=== PATIENT | female | born 1980 | race African-American/Black ===

== ENCOUNTER 2018-12-09 13:48 | Inpatient (IN) | payer OTHER ==
[2018-12-09 14:09] VITALS: BMI 24.8
--- NOTE | 2018-12-09 15:11 | HP ---
CIWA Score Nausea/Vomitin-No Nausea/No Vomiting Muscle Tremors: 2 Anxiety: 3 Agitation: 3 Paroxysmal Sweats: 2 Orientation: 0-Oriented Tacttile Disturbances: 2-Mild Itch/Numbness/Burn Auditory Disturbances: 0-None Visual Disturbances: 0-None Headache: 0-None Present CIWA-Ar Total Score: 12 - Admission Criteria OASAS Guidelines: Admission for Medically Managed Detox: Requires at least one of the followin. CIWA greater than 12 2. Seizures within the past 24 hours 3. Delirium tremens within the past 24 hours 4. Hallucinations within the past 24 hours 5. Acute intervention needed for co occurring medical disorder 6. Acute intervention needed for co occurring psychiatric disorder 7. Severe withdrawal that cannot be handled at a lower level of care (continued vomiting, continued diarrhea, abnormal vital signs) requiring intravenous medication and/or fluids 8. Patient presents the following: CIWA greater than 12 Admission Criteria Met: Admission criteria met Admission ROS [facility] Chief Complaint: " detox" Allergies/Adverse Reactions: Allergies Allergy/AdvReac Type Severity Reaction Status Date / Time banana Allergy Severe Difficulty Verified 12/09/18 15:13 Breathing peach Allergy Severe Difficulty Verified 12/09/18 15:13 Breathing shrimp Allergy Severe Difficulty Verified 12/09/18 15:13 Breathing No Known Drug Allergies Allergy Verified 12/09/18 15:33 History of Present Illness: 38 yo female with hx of nicotine, alcohol, marijuana, cocaine dependence is here seeking detox, self referred. Patient reports the following medical conditions: asthma, bipolar, psychosis, ptsd, depression. Denies suicidal / homicidal ideation . Reports hx of suicide attempt in 2017 admitted to [facility]. Denies hx of seizures or black outs. Longest period of sobriety three years 2012 -2015. Exam Limitations: No Limitations - Ebola screening Have you been sick,other than usual withdrawal symptoms: No - Review of Systems Constitutional: Changes in sleep EENT: reports: Dental Problems (dental pain + caries) Respiratory: reports: No Symptoms reported Cardiac: reports: No Symptoms Reported GI: reports: Poor Appetite, Poor Fluid Intake : reports: No Symptoms Reported Musculoskeletal: reports: No Symptoms Reported Integumentary: reports: Sweating Neuro: reports: No Symptoms reported Endocrine: reports: Increased Thirst Hematology: reports: No Symptoms Reported Psychiatric: reports: Orientated x3, Anxious, Depressed Other Systems: Reviewed and Negative Patient History - Patient Medical History Hx Anemia: No Hx Asthma: Yes Hx Chronic Obstructive Pulmonary Disease (COPD): No Hx Cancer: No Hx Cardiac Disorders: No Hx Congestive Heart Failure: No Hx Hypertension: No Hx Hypercholesterolemia: No Hx Pacemaker: No HX Cerebrovascular Accident: No Hx Seizures: No Hx Dementia: No Hx Diabetes: No Hx Gastrointestinal Disorders: No Hx Liver Disease: No Hx Genitourinary Disorders: No Hx Sexually Transmitted Disorders: No Hx Renal Disease (ESRD): Yes (kidney stones ) Hx Thyroid Disease: No Hx Human Immunodeficiency Virus (HIV): No (last tested six months ago ) Hx Hepatitis C: No Hx Depression: Yes Hx Suicide Attempt: Yes (2016) Hx Bipolar Disorder: Yes Hx Schizophrenia: No - Patient Surgical History Past Surgical History: No - PPD History Previous Implant?: No Documented Results: Negative w/o proof PPD to be Administered?: Yes - Reproductive History Patient is a Female of Child Bearing Age (11 -55 yrs old): Yes Last Menstrual Period: 11/10/18 Patient : No - Smoking Cessation Smoking history: Current every day smoker Have you smoked in the past 12 months: Yes Aproximately how many cigarettes per day: 5 Hx Chewing Tobacco Use: No Initiated information on smoking cessation: Yes 'Breaking Loose' booklet given: 12/09/18 - Substance & Tx. History Hx Alcohol Use: Yes Hx Substance Use: Yes Substance Use Type: Alcohol, Cocaine, Marijuana Hx Substance Use Treatment: Yes (last rehab at [facility] 2005) - Substances Abused alcohol Route: Oral Frequency: 3-6 times per week Amount used: 1 pint Age of first use: 20 Date of Last Use: 12/08/18 Cocaine Route: Inhalation Frequency: 3-6 times per week Amount used: 1 gram Age of first use: 32 Date of Last Use: 12/08/18 Marijuana/Hashish Route: Smoking Frequency: 1-2 times per week Amount used: 1 oz Age of first use: 20 Date of Last Use: 12/08/18 Family Disease History - Family Disease History Family Disease History: CA: Mother (maia dependence ), Other: Father (maia dependence ), Mother Admission Physical Exam BHS - Vital Signs Vital Signs: Vital Signs - 24 hr 12/09/18 14:07 Temperature 96.2 F L Pulse Rate 86 Respiratory 20 Rate Blood Pressure 117/64 - Physical General Appearance: Yes: Appropriately Dressed, Sweating, Anxious HEENTM: Yes: EOMI, Hearing grossly Normal, Normal ENT Inspection, Normocephalic , Normal Voice, CAROLE, Pharynx Normal, Tm's normal, Other (dry mucous memebranes , multiple caries) Respiratory: Yes: Chest Non-Tender, Lungs Clear, Normal Breath Sounds, No Respiratory Distress, No Accessory Muscle Use Neck: Yes: Within Normal Limits Breast: Yes: Breast Exam Deferred Cardiology: Yes: Regular Rhythm, Regular Rate Abdominal: Yes: Within Normal Limits Genitourinary: Yes: Within Normal Limits Back: Yes: Normal Inspection Musculoskeletal: Yes: full range of Motion, Gait Steady, Pelvis Stable Extremities: Yes: Normal Capillary Refill, Normal Inspection, Normal Range of Motion Neurological: Yes: lab[address] II-XII NML intact, Fully Oriented, Alert, Motor Strength 5/5 Integumentary: Yes: Normal Color, Warm, Diaphoresis Lymphatic: Yes: Within Normal Limits - Diagnostic (1) Alcohol dependence with withdrawal Current Visit: Yes Status: Acute Qualifiers: Complication of substance-induced condition: uncomplicated Qualified Code(s ): F10.230 - Alcohol dependence with withdrawal, uncomplicated (2) At risk for dehydration due to poor fluid intake Current Visit: Yes Status: Acute (3) Cocaine dependence Current Visit: Yes Status: Acute Qualifiers: Substance use status: uncomplicated Qualified Code(s): F14.20 - Cocaine dependence, uncomplicated (4) Cannabis dependence Current Visit: Yes Status: Acute (5) Psychiatric disorder Current Visit: Yes Status: Acute (6) Asthma Current Visit: Yes Status: Chronic Qualifiers: Asthma severity: mild Asthma persistence: unspecified Asthma complication type: uncomplicated Qualified Code(s): J45.909 - Unspecified asthma, uncomplicated Cleared for Admission S - Detox or Rehab [facility] Level of Care: Medically Managed Detox Regimen/Protocol: Librium [facility] Breath Alcohol Content Breath Alcohol Content: 0 Urine Pregancy Test - Result Urine Test Results: Negative- NO Line Present Urine Drug Screen - Results Drug Screen Negative: No Urine Drug Screen Results: THC-Marijuana, MAIA-Cocaine Inpatient Rehab Admission - Rehab Decision to Admit Inpatient rehab admission?: No
[2018-12-09] MEDS ORDERED: LOPERAMIDE HCL 2 MG CAPSULE PO PRN (15:20)
[2018-12-09] MEDS ORDERED: MENTHOL/PHENOL 1 EACH UD MM PRN (15:20)
[2018-12-09] MEDS ORDERED: MAG HYDROX/AL HYDROX/SIMETH 30 ML UNIT-DOSE CUP PO PRN (15:20)
[2018-12-09] MEDS ORDERED: ACETAMINOPHEN 325 MG TABLET (FP) PO PRN (15:20)
[2018-12-09] MEDS ORDERED: hydrOXYzine PAMOATE 50 MG CAPSULE (FP) PO PRN (15:20)
[2018-12-09] MEDS ORDERED: MAGNESIUM CITRATE 300 ML BOTTLE PO PRN (15:20)
[2018-12-09] MEDS ORDERED: MAGNESIUM HYDROX 2400MG/30ML ORAL SUSPENSION 30 ML CUP PO PRN (15:20)
[2018-12-09] MEDS ORDERED: NICOTINE POLACRILEX 2 MG GUM BC PRN (15:20)
[2018-12-09] MEDS ORDERED: guaiFENesin/D-METHORPHAN HB 10 ML UNIT-DOSE CUPS PO PRN (15:20)
[2018-12-09] MEDS ORDERED: IBUPROFEN 400 MG TABLET (FP) PO PRN (15:20)
[2018-12-09] MEDS ORDERED: chlordiazePOXIDE HCL 25 MG CAPSULE PO PRN (15:20)
[2018-12-09] MEDS ORDERED: BENZOCAINE 20 % GEL TUBE MM PRN (15:40)
[2018-12-09] MEDS: chlordiazePOXIDE HCL 25 MG CAPSULE PO SCH (22:13)
[2018-12-09] MEDS: THIAMINE HCL 100 MG TABLET (FP) PO SCH (22:13)
[2018-12-09] MEDS: MELATONIN 5 MG TABLETS PO PRN (22:13)
[2018-12-10] MEDS: chlordiazePOXIDE HCL 25 MG CAPSULE PO SCH ×4 (05:56→22:13)
[2018-12-10] MEDS: P-EPHED 60MG/TRIPROLIDI 2.5MG TABLET PO PRN (06:00)
--- NOTE | 2018-12-10 08:08 | EKG ---
Test Reason : Blood Pressure : / mmHG Vent. Rate : 068 BPM Atrial Rate : 068 BPM P-R Int : 146 ms QRS Dur : 076 ms QT Int : 420 ms P-R-T Axes : 045 000 033 degrees QTc Int : 446 ms NORMAL SINUS RHYTHM NORMAL ECG NO PREVIOUS ECGS AVAILABLE Confirmed by MD RAHDA, DOUG ([id number]) on 12/10/2018 8:08:14 AM Referred By: Stephanie Pugh Confirmed By:DOUG GARCIA MD
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
[2018-12-10] MEDS: PRENATAL VITAMINS W/ FOLIC ACID TABLET (FP) PO SCH (10:29)
--- NOTE | 2018-12-10 10:57 | PN ---
S CIWA - CIWA Score Nausea/Vomitin-No Nausea/No Vomiting Muscle Tremors: 3 Anxiety: 3 Agitation: 3 Paroxysmal Sweats: 3 Orientation: 0-Oriented Tacttile Disturbances: 0-None Auditory Disturbances: 0-None Visual Disturbances: 0-None Headache: 0-None Present CIWA-Ar Total Score: 12 BHS Progress Note (SOAP) Subjective: tired sweats shakes interrupted sleep Objective: 12/10/18 10:57 Vital Signs Temperature 98.2 F 12/10/18 10:12 Pulse Rate 71 12/10/18 10:12 Respiratory Rate 18 12/10/18 10:12 Blood Pressure 110/72 12/10/18 10:12 O2 Sat by Pulse Oximetry (%) rest of labs pending aaox3 ambulating no acute distress Assessment: 12/10/18 10:57 withdrawal sx Plan: continue detox increase fluids rest of labs pending
[2018-12-10] MEDS: NICOTINE 14 MG/24 HOURS TOPICAL PATCH TD SCH (11:13)
[2018-12-10 11:24] LABS: ALBUMIN 3.7 g/dl (3.4-5.0); ALK PHOS 62 U/L (45-117); ANION GAP 6 MMOL/L (8-16); BILIRUBIN,TOTAL 0.5 mg/dL (0.2-1); BLOOD UREA NITROGEN 9 mg/dL (7-18); CALCIUM 8.8 mg/dL (8.5-10.1); CHLORIDE 104 mmol/L (98-107); CO2 27 mmol/L (21-32); CREATININE 0.7 mg/dL (0.55-1.3); GLUCOSE,RANDOM 88 mg/dL (74-106); SGOT/AST 16 U/L (15-37); SGPT/ALT 15 U/L (13-61); SODIUM 137 mmol/L (136-145); TOT PROT 7.5 g/dl (6.4-8.2)
[2018-12-10] MEDS: THIAMINE HCL 100 MG TABLET (FP) PO SCH (22:13)
[2018-12-10] MEDS: MELATONIN 5 MG TABLETS PO PRN (22:13)
[2018-12-11] MEDS: chlordiazePOXIDE HCL 25 MG CAPSULE PO SCH ×3 (05:57→17:47)
[2018-12-11] MEDS ORDERED: diphenhydrAMINE HCL 50 MG CAPSULE PO ONE (09:15)
--- NOTE | 2018-12-11 09:28 | PN ---
S Progress Note Note: pt c/o she received a peach yogurt and she was unaware that it had peaches in it. Pt states she ate it and now she is feeling itchy throat. benadryl 50mg x one ordered will f/u
[2018-12-11] MEDS: NICOTINE 14 MG/24 HOURS TOPICAL PATCH TD SCH (10:18)
[2018-12-11] MEDS: PRENATAL VITAMINS W/ FOLIC ACID TABLET (FP) PO SCH (10:18)
--- NOTE | 2018-12-11 12:09 | PN ---
[facility] CIWA - CIWA Score Nausea/Vomitin-No Nausea/No Vomiting Muscle Tremors: 3 Anxiety: 2 Agitation: 3 Paroxysmal Sweats: 3 Orientation: 0-Oriented Tacttile Disturbances: 0-None Auditory Disturbances: 0-None Visual Disturbances: 0-None Headache: 0-None Present CIWA-Ar Total Score: 11 BHS Progress Note (SOAP) Subjective: irritable agitation sweats interrupted sleep Objective: 12/11/18 12:09 Vital Signs Temperature 97.9 F 12/11/18 09:50 Pulse Rate 73 12/11/18 09:50 Respiratory Rate 16 12/11/18 09:50 Blood Pressure 102/66 12/11/18 09:50 O2 Sat by Pulse Oximetry (%) Laboratory Tests 12/10/18 12/10/18 12/10/18 08:00 08:00 08:00 WBC Cancelled Corrected WBC (auto) Cancelled RBC Cancelled Hgb Cancelled Hct Cancelled MCV Cancelled MCH Cancelled MCHC Cancelled RDW Cancelled Plt Count Cancelled MPV Cancelled Manual Slide Review Cancelled Platelet Comment Cancelled Sodium 137 Potassium 4.0 Chloride 104 Carbon Dioxide 27 Anion Gap 6 L BUN 9 Creatinine 0.7 Creat Clearance w eGFR > 60 Random Glucose 88 Calcium 8.8 Total Bilirubin 0.5 AST 16 ALT 15 Alkaline Phosphatase 62 Total Protein 7.5 Albumin 3.7 RPR Titer Nonreactive HIV 1&2 Antibody Screen HIV P24 Antigen 12/10/18 11:30 WBC Corrected WBC (auto) RBC Hgb Hct MCV MCH MCHC RDW Plt Count MPV Manual Slide Review Platelet Comment Sodium Potassium Chloride Carbon Dioxide Anion Gap BUN Creatinine Creat Clearance w eGFR Random Glucose Calcium Total Bilirubin AST ALT Alkaline Phosphatase Total Protein Albumin RPR Titer HIV 1&2 Antibody Screen Negative HIV P24 Antigen Negative cbc ordered aaox3 ambulating no acute distress Assessment: 12/11/18 12:11 withdrawal sx Plan: continue detox increase fluids
[2018-12-11] MEDS: MELATONIN 5 MG TABLETS PO PRN (22:13)
[2018-12-11] MEDS: chlordiazePOXIDE 5 MG CAPSULE PO SCH (22:13)
[2018-12-11] MEDS: THIAMINE HCL 100 MG TABLET (FP) PO SCH (22:13)
[2018-12-12] MEDS: chlordiazePOXIDE 5 MG CAPSULE PO SCH ×3 (06:00→17:56)
[2018-12-12] MEDS: P-EPHED 60MG/TRIPROLIDI 2.5MG TABLET PO PRN (06:02)
[2018-12-12] MEDS: NICOTINE 14 MG/24 HOURS TOPICAL PATCH TD SCH (10:34)
[2018-12-12] MEDS: PRENATAL VITAMINS W/ FOLIC ACID TABLET (FP) PO SCH (10:34)
[2018-12-12 10:42] LABS: BASO % 0.5 % (0-2.0); EOS % 3.7 % (0-4.5); HEMATOCRIT 36.6 % (32.4-45.2); HEMOGLOBIN 12.7 GM/dL (10.7-15.3); LYMPH % 42.3 % (8-40); MCH 34.8 pg (25.7-33.7); MCHC 34.8 g/dl (32.0-36.0); MEAN CELL VOLUME 99.8 fl (80-96); MEAN PLT VOLUME 8.2 fl (7.5-11.1); MONO % 8.6 % (3.8-10.2); NEUT % 44.9 % (42.8-82.8); PLATELET COUNT 250 K/MM3 (134-434); RBC 3.66 M/mm3 (3.60-5.2); RDW 13.4 % (11.6-15.6); WHITE BLOOD COUNT 5.3 K/mm3 (4.0-10.0)
--- NOTE | 2018-12-12 11:08 | PN ---
BHS Progress Note (SOAP) Subjective: agitation Objective: 12/12/18 11:08 Vital Signs Temperature 98.1 F 12/12/18 09:33 Pulse Rate 81 12/12/18 09:33 Respiratory Rate 16 12/12/18 09:33 Blood Pressure 111/68 12/12/18 09:33 O2 Sat by Pulse Oximetry (%) aaox3 ambulating no acute distress Assessment: 12/12/18 11:08 mild withdrawal sx Plan: continue detox d/c in am
[2018-12-12] MEDS: chlordiazePOXIDE HCL 10 MG CAPSULE PO SCH (22:21)
[2018-12-12] MEDS: MELATONIN 5 MG TABLETS PO PRN (22:21)
[2018-12-12] MEDS: THIAMINE HCL 100 MG TABLET (FP) PO SCH (23:22)
[2018-12-13] MEDS: chlordiazePOXIDE HCL 10 MG CAPSULE PO SCH (05:54)
[2018-12-13 06:09] VITALS: PULSE 76
[2018-12-13 09:04] VITALS: BP 102/72; TEMP 97.7
--- NOTE | 2018-12-13 09:57 | DS ---
[facility] Detox Discharge Summary Admission Date: 12/09/18 Discharge Date: 12/13/18 - History Present History: Alcohol Dependence, Cannabis Dependence, Cocaine Dependence - Physical Exam Results Vital Signs: Vital Signs Temperature 97.7 F 12/13/18 09:03 Pulse Rate 76 12/13/18 09:03 Respiratory Rate 18 12/13/18 09:03 Blood Pressure 102/72 12/13/18 09:03 O2 Sat by Pulse Oximetry (%) - Treatment Hospital Course: Detox Protocol Followed, Detoxed Safely, Responded well, Discharged Condition Good, Rehab Referral Accepted - Medication Discharge Medications: Ambulatory Orders Aripiprazole [Abilify] 5 mg PO DAILY 12/09/18 [place] Carbonate [Lithobid] 300 mg PO BID 12/09/18 - Diagnosis (1) Alcohol dependence with withdrawal Current Visit: Yes Status: Chronic Qualifiers: Complication of substance-induced condition: uncomplicated Qualified Code(s ): F10.230 - Alcohol dependence with withdrawal, uncomplicated (2) At risk for dehydration due to poor fluid intake Current Visit: Yes Status: Acute (3) Cannabis dependence Current Visit: Yes Status: Chronic (4) Cocaine dependence Current Visit: Yes Status: Chronic Qualifiers: Substance use status: uncomplicated Qualified Code(s): F14.20 - Cocaine dependence, uncomplicated (5) Psychiatric disorder Current Visit: Yes Status: Acute (6) Substance induced mood disorder Current Visit: Yes Status: Acute (7) Substance-induced sleep disorder Current Visit: Yes Status: Acute (8) Asthma Current Visit: Yes Status: Chronic Qualifiers: Asthma severity: mild Asthma persistence: unspecified Asthma complication type: uncomplicated Qualified Code(s): J45.909 - Unspecified asthma, uncomplicated (9) Bipolar disorder Current Visit: Yes Status: Chronic (10) Nicotine dependence Current Visit: Yes Status: Chronic Qualifiers: Nicotine product type: cigarettes Substance use status: uncomplicated Qualified Code(s): F17.210 - Nicotine dependence, cigarettes, uncomplicated (11) PTSD (post-traumatic stress disorder) Current Visit: Yes Status: Chronic - AMA Did Patient Leave Against Medical Advice: No (referred to [facility] patient rehab)
[2018-12-13] MEDS: NICOTINE 14 MG/24 HOURS TOPICAL PATCH TD SCH (11:17)
[2018-12-13] MEDS: PRENATAL VITAMINS W/ FOLIC ACID TABLET (FP) PO SCH (11:17)
== END 2018-12-13 10:43 | disposition home or self-care (01) | DRG 774 ==
LOC: YASAS 13:48 → Y6N 17:53
PROVIDERS: ADMIT Surgery; ATTEND Surgery
PROC: HZ2ZZZZ Detoxification Services for Substance Abuse Treatment (ICD-10-PCS; principal; 2018-12-09)
DX: F10.230 Alcohol dependence with withdrawal, uncomplicated (principal); F14.20 Cocaine dependence, uncomplicated; F12.20 Cannabis dependence, uncomplicated; F31.9 Bipolar disorder, unspecified; F19.24 Other psychoactive substance dependence with psychoactive substance-induced mood disorder; F19.282 Other psychoactive substance dependence with psychoactive substance-induced sleep disorder; F43.10 Post-traumatic stress disorder, unspecified; F99 Mental disorder, not otherwise specified; J45.909 Unspecified asthma, uncomplicated; Z99.89 Dependence on other enabling machines and devices; Z87.442 Personal history of urinary calculi
CPT/HCPCS: 36415; 80053; 85025; 86593; 87389; 93005; 93010

== ENCOUNTER 2018-12-27 09:41 | Inpatient (IN) | payer OTHER ==
[2018-12-27 10:03] VITALS: BMI 24.8
--- NOTE | 2018-12-27 10:22 | HP ---
CIWA Score Nausea/Vomitin Muscle Tremors: 2 Anxiety: 2 Agitation: 2 Paroxysmal Sweats: 1-Minimal Palms Moist Orientation: 0-Oriented Tacttile Disturbances: 1-Very Mild Itch/Numbness Auditory Disturbances: 1-Very Mild Visual Disturbances: 0-None Headache: 2-Mild CIWA-Ar Total Score: 13 - Admission Criteria OASAS Guidelines: Admission for Medically Managed Detox: Requires at least one of the followin. CIWA greater than 12 2. Seizures within the past 24 hours 3. Delirium tremens within the past 24 hours 4. Hallucinations within the past 24 hours 5. Acute intervention needed for co occurring medical disorder 6. Acute intervention needed for co occurring psychiatric disorder 7. Severe withdrawal that cannot be handled at a lower level of care (continued vomiting, continued diarrhea, abnormal vital signs) requiring intravenous medication and/or fluids 8. Patient presents the following: CIWA greater than 12 Admission Criteria Met: Admission criteria met Admission ROS S - HPI Chief Complaint: i need help to stop drinking alcohol,cocaine and marijuana Allergies/Adverse Reactions: Allergies Allergy/AdvReac Type Severity Reaction Status Date / Time banana Allergy Severe Difficulty Verified 12/27/18 10:21 Breathing peach Allergy Severe Difficulty Verified 12/27/18 10:21 Breathing shrimp Allergy Severe Difficulty Verified 12/27/18 10:21 Breathing No Known Drug Allergies Allergy Verified 12/27/18 10:21 History of Present Illness: this 38 years old female with alcohol,cocaine and marijuana dependence,seeking detox,withdrawal last treatment 12/09/18 to 12/13/18 asthma bipolar disorder,ptsd,no med nicotine dependence 4 cigarette/day longest sobriety 6 months plan to go to rehab after detox Exam Limitations: No Limitations - Ebola screening Have you traveled outside of the country in the last 21 days: No Have you had contact with anyone from an Ebola affected area: No Have you been sick,other than usual withdrawal symptoms: No Do you have a fever: No - Review of Systems Constitutional: Loss of Appetite, Malaise, Night Sweats, Changes in sleep, Weakness, Unintentional Wgt. Loss EENT: reports: Nose Congestion Respiratory: reports: No Symptoms reported (asthma) Cardiac: reports: No Symptoms Reported GI: reports: Nausea, Vomiting, Abdominal cramping : reports: No Symptoms Reported Musculoskeletal: reports: Back Pain, Muscle Pain Integumentary: reports: Dryness Neuro: reports: Tremors Endocrine: reports: No Symptoms Reported Hematology: reports: No Symptoms Reported Psychiatric: reports: No Sypmtoms Reported, Judgement Intact, Mood/Affect Appropiate, Orientated x3, other (bipolar disorder,ptsd) Patient History - Patient Medical History Hx Anemia: No Hx Asthma: Yes (0n albuterol inhaler) Hx Chronic Obstructive Pulmonary Disease (COPD): No Hx Cancer: No Hx Cardiac Disorders: No Hx Congestive Heart Failure: No Hx Hypertension: No Hx Hypercholesterolemia: No Hx Pacemaker: No HX Cerebrovascular Accident: No Hx Seizures: No Hx Dementia: No Hx Diabetes: No Hx Gastrointestinal Disorders: No Hx Liver Disease: No Hx Genitourinary Disorders: No Hx Sexually Transmitted Disorders: No Hx Renal Disease (ESRD): Yes (kidney stones ) Hx Thyroid Disease: No Hx Human Immunodeficiency Virus (HIV): No (last 12/09/18 negative) Hx Hepatitis C: No Hx Depression: Yes Hx Suicide Attempt: Yes (2017 ,scrach herself) Hx Bipolar Disorder: Yes (non compliance,no med since september 2018) Hx Schizophrenia: No Other Medical History: no sucidal,no homicidal - Patient Surgical History Past Surgical History: No Hx Neurologic Surgery: No Hx Cataract Extraction: No Hx Cardiac Surgery: No Hx Lung Surgery: No Hx Breast Surgery: No Hx Breast Biopsy: No Hx Abdominal Surgery: No Hx Appendectomy: No Hx Cholecystectomy: No Hx Genitourinary Surgery: No Hx Section: No Hx Orthopedic Surgery: No Anesthesia Reaction: No - PPD History Previous Implant?: Yes Documented Results: Negative w/proof Implanted On Prior [facility] Admission?: Yes Date: 12/11/18 Results: 0 mm PPD to be Administered?: No - Reproductive History Patient is a Female of Child Bearing Age (11 -55 yrs old): Yes Last Menstrual Period: 12/11/18 Patient : No - Smoking Cessation Smoking history: Current every day smoker Have you smoked in the past 12 months: Yes Aproximately how many cigarettes per day: 5 Hx Chewing Tobacco Use: No Initiated information on smoking cessation: Yes 'Breaking Loose' booklet given: 12/27/18 - Substance & Tx. History Hx Alcohol Use: Yes Hx Substance Use: Yes Substance Use Type: Alcohol, Cocaine, Marijuana Hx Substance Use Treatment: Yes ([facility] 12/09/18 to 12/13/18) - Substances Abused Alcohol Route: Oral Frequency: Daily Amount used: 1-2 pints vodka Age of first use: 20 Date of Last Use: 12/25/18 Cocaine Route: Inhalation Frequency: Daily Amount used: 1 gram Age of first use: 32 Date of Last Use: 12/25/18 Marijuana/Hashish Route: Smoking Frequency: Daily Amount used: 1/2-1 ounce Age of first use: 20 Date of Last Use: 12/25/18 Family Disease History - Family Disease History Family Disease History: CA: Mother (maia dependence ), Other: Father (maia dependence ), Mother Admission Physical Exam S - Vital Signs Vital Signs: Vital Signs - 24 hr 12/27/18 09:59 Temperature 97.0 F L Pulse Rate 68 Respiratory 18 Rate Blood Pressure 113/69 - Physical General Appearance: Yes: Moderate Distress, Tremorous, Irritable, Sweating, Anxious HEENTM: Yes: Normal ENT Inspection, CAROLE, Pharynx Normal Respiratory: Yes: Within Normal Limits, Lungs Clear, Normal Breath Sounds Neck: Yes: Within Normal Limits, Supple, Trachea in good position Breast: Yes: Breast Exam Deferred Cardiology: Yes: Within Normal Limits, Regular Rhythm, Regular Rate, S1, S2 Abdominal: Yes: Within Normal Limits, Normal Bowel Sounds, Non Tender, Flat, Soft Genitourinary: Yes: Within Normal Limits Back: Yes: Muscle Spasm Musculoskeletal: Yes: Back pain, Muscle Pain Extremities: Yes: Tremors Neurological: Yes: [place] II-XII NML intact, Fully Oriented, Alert, Motor Strength 5/5 Integumentary: Yes: Dry Lymphatic: Yes: Within Normal Limits - Diagnostic (1) Alcohol dependence with withdrawal Current Visit: Yes Status: Acute Qualifiers: Complication of substance-induced condition: uncomplicated Qualified Code(s ): F10.230 - Alcohol dependence with withdrawal, uncomplicated (2) Bipolar disorder Current Visit: No Status: Chronic (3) Cannabis dependence Current Visit: Yes Status: Chronic (4) Cocaine dependence Current Visit: Yes Status: Chronic Qualifiers: Substance use status: uncomplicated Qualified Code(s): F14.20 - Cocaine dependence, uncomplicated (5) Nicotine dependence Current Visit: Yes Status: Chronic Qualifiers: Nicotine product type: cigarettes Substance use status: uncomplicated Qualified Code(s): F17.210 - Nicotine dependence, cigarettes, uncomplicated (6) PTSD (post-traumatic stress disorder) Current Visit: No Status: Chronic Comment: By history. Cleared for Admission [facility] - Detox or Rehab [facility] Level of Care: Medically Managed Detox Regimen/Protocol: Librium [facility] Breath Alcohol Content Breath Alcohol Content: 0 Urine Pregancy Test - Result Urine Test Results: Negative - NO Line Present Urine Drug Screen - Results Drug Screen Negative: No Urine Drug Screen Results: THC-Marijuana, MAIA-Cocaine, BZO-Benzodiazepines, MTD- Methadone Inpatient Rehab Admission - Rehab Decision to Admit Inpatient rehab admission?: No
[2018-12-27] MEDS ORDERED: BISMUTH SUBSALICYLATE 262 MG/15 ML BTL PO PRN (10:38)
[2018-12-27] MEDS ORDERED: MAGNESIUM CITRATE 300 ML BOTTLE PO PRN (10:38)
[2018-12-27] MEDS ORDERED: IBUPROFEN 400 MG TABLET (FP) PO PRN (10:38)
[2018-12-27] MEDS ORDERED: METHOCARBAMOL 500 MG TABLET PO PRN (10:38)
[2018-12-27] MEDS ORDERED: MENTHOL/PHENOL 1 EACH UD MM PRN (10:38)
[2018-12-27] MEDS ORDERED: chlordiazePOXIDE HCL 10 MG CAPSULE PO PRN (10:38)
[2018-12-27] MEDS ORDERED: ACETAMINOPHEN 325 MG TABLET (FP) PO PRN ×2 (10:38)
[2018-12-27] MEDS ORDERED: MAG HYDROX/AL HYDROX/SIMETH 30 ML UNIT-DOSE CUP PO PRN (10:38)
[2018-12-27] MEDS ORDERED: MAGNESIUM HYDROX 2400MG/30ML ORAL SUSPENSION 30 ML CUP PO PRN (10:38)
[2018-12-27] MEDS ORDERED: ALBUTEROL SO4 8 GM HFA INHALER IH PRN (10:42)
[2018-12-27] MEDS: chlordiazePOXIDE HCL 25 MG CAPSULE PO SCH ×2 (12:39→22:57)
[2018-12-27] MEDS: THIAMINE HCL 100 MG TABLET (FP) PO SCH (22:57)
[2018-12-28] MEDS: chlordiazePOXIDE HCL 25 MG CAPSULE PO SCH (04:15)
[2018-12-28 10:17] LABS: HEMOGLOBIN 13.6 GM/dL (10.7-15.3); MCH 34.8 pg (25.7-33.7); MCHC 34.8 g/dl (32.0-36.0); MEAN CELL VOLUME 99.8 fl (80-96); MEAN PLT VOLUME 8.7 fl (7.5-11.1); PLATELET COUNT 272 K/MM3 (134-434); RBC 3.91 M/mm3 (3.60-5.2); RDW 13.7 % (11.6-15.6); WHITE BLOOD COUNT 5.8 K/mm3 (4.0-10.0)
[2018-12-28] MEDS: PRENATAL VITAMINS W/ FOLIC ACID TABLET (FP) PO SCH (10:22)
[2018-12-28] MEDS: hydrOXYzine PAMOATE 25 MG CAPSULE (FP) PO PRN (10:24)
[2018-12-28 10:49] LABS: ALBUMIN 3.9 g/dl (3.4-5.0); ALK PHOS 75 U/L (45-117); ANION GAP 5 MMOL/L (8-16); BILIRUBIN,TOTAL 0.3 mg/dL (0.2-1); BLOOD UREA NITROGEN 13 mg/dL (7-18); CALCIUM 8.9 mg/dL (8.5-10.1); CHLORIDE 104 mmol/L (98-107); CO2 29 mmol/L (21-32); CREATININE 0.8 mg/dL (0.55-1.3); GLUCOSE,RANDOM 82 mg/dL (74-106); SGOT/AST 12 U/L (15-37); SGPT/ALT 15 U/L (13-61); SODIUM 138 mmol/L (136-145); TOT PROT 7.8 g/dl (6.4-8.2)
[2018-12-28] MEDS: chlordiazePOXIDE 5 MG CAPSULE PO SCH ×2 (13:46→22:16)
--- NOTE | 2018-12-28 15:35 | PN ---
S CIWA - CIWA Score Nausea/Vomitin-No Nausea/No Vomiting Muscle Tremors: None Anxiety: 3 Agitation: 0-Normal Activity Paroxysmal Sweats: 3 Orientation: 0-Oriented Tacttile Disturbances: 3-Moderate Itch/Numb/Burn Auditory Disturbances: 3-Moderate Harsh/Frighten Visual Disturbances: 0-None Headache: 0-None Present CIWA-Ar Total Score: 12 BHS Progress Note (SOAP) Subjective: Sweating, Anxious, Interrupted Sleep, Poor Appetite. Objective: PATIENT A & O X 3, OBSERVED AMBULATING ON UNIT. IN NO ACUTE DISTRESS. 12/28/18 15:34 Vital Signs Temperature 96.9 F L 12/28/18 13:56 Pulse Rate 69 12/28/18 13:56 Respiratory Rate 18 12/28/18 13:56 Blood Pressure 109/76 12/28/18 13:56 O2 Sat by Pulse Oximetry (%) Laboratory Tests 12/28/18 12/28/18 05:30 05:30 WBC 5.8 RBC 3.91 Hgb 13.6 Hct 39.0 MCV 99.8 H MCH 34.8 H MCHC 34.8 RDW 13.7 Plt Count 272 MPV 8.7 Sodium 138 Potassium 4.0 Chloride 104 Carbon Dioxide 29 Anion Gap 5 L BUN 13 Creatinine 0.8 Creat Clearance w eGFR > 60 Random Glucose 82 Calcium 8.9 Total Bilirubin 0.3 AST 12 L ALT 15 Alkaline Phosphatase 75 Total Protein 7.8 Albumin 3.9 LABS NOTED. RPR RESULT PENDING. 12/28/18 15:34 Assessment: 12/28/18 15:34 WITHDRAWAL SYMPTOMS. Plan: CONTINUE DETOX. INCREASE DAILY PO FLUID INTAKE. ENSURE BID FOR CALORIC SUPPLEMENTATION.
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
[2018-12-28] MEDS: MELATONIN 5 MG TABLETS PO PRN (22:16)
[2018-12-28] MEDS: THIAMINE HCL 100 MG TABLET (FP) PO SCH (22:17)
[2018-12-29] MEDS: chlordiazePOXIDE 5 MG CAPSULE PO SCH (05:56)
[2018-12-29] MEDS ORDERED: ARIPiprazole 2 MG TABLET PO SCH (10:00)
[2018-12-29] MEDS: PRENATAL VITAMINS W/ FOLIC ACID TABLET (FP) PO SCH (10:47)
[2018-12-29 10:49] LABS: URINE APPEARANCE SLCLOUDY; URINE BILIRUBIN NEGATIVE (<2.0 mg/dL); URINE COLOR YELLOW; URINE GLUCOSE (UA) NEGATIVE (NEGATIVE); URINE KETONE NEGATIVE (NEGATIVE); URINE LEUK ESTERASE NEGATIVE (NEGATIVE); URINE NITRITE NEGATIVE (NEGATIVE); URINE PROTEIN NEGATIVE (NEGATIVE); URINE UROBILINOGEN NEGATIVE mg/dL (0.2-1.0)
--- NOTE | 2018-12-29 10:53 | PN ---
[facility] CIWA - CIWA Score Nausea/Vomitin-No Nausea/No Vomiting Muscle Tremors: 2 Anxiety: 1-Mildly Anxious Agitation: 2 Paroxysmal Sweats: 1-Minimal Palms Moist Orientation: 0-Oriented Tacttile Disturbances: 0-None Auditory Disturbances: 0-None Visual Disturbances: 0-None Headache: 1-Very Mild CIWA-Ar Total Score: 7 S Progress Note (SOAP) Subjective: feeling better less tremor mild sweating discuss aftercare with staff good appetites Objective: 12/29/18 10:57 Vital Signs Temperature 96.9 F L 12/29/18 09:36 Pulse Rate 72 12/29/18 09:36 Respiratory Rate 18 12/29/18 09:36 Blood Pressure 102/68 12/29/18 09:36 O2 Sat by Pulse Oximetry (%) Laboratory Last Values WBC 5.8 K/mm3 (4.0-10.0) 12/28/18 05:30 RBC 3.91 M/mm3 (3.60-5.2) 12/28/18 05:30 Hgb 13.6 GM/dL (10.7-15.3) 12/28/18 05:30 Hct 39.0 % (32.4-45.2) 12/28/18 05:30 MCV 99.8 fl (80-96) H 12/28/18 05:30 MCH 34.8 pg (25.7-33.7) H 12/28/18 05:30 MCHC 34.8 g/dl (32.0-36.0) 12/28/18 05:30 RDW 13.7 % (11.6-15.6) 12/28/18 05:30 Plt Count 272 K/MM3 (134-434) 12/28/18 05:30 MPV 8.7 fl (7.5-11.1) 12/28/18 05:30 Sodium 138 mmol/L (136-145) 12/28/18 05:30 Potassium 4.0 mmol/L (3.5-5.1) 12/28/18 05:30 Chloride 104 mmol/L (98-107) 12/28/18 05:30 Carbon Dioxide 29 mmol/L (21-32) 12/28/18 05:30 Anion Gap 5 MMOL/L (8-16) L 12/28/18 05:30 BUN 13 mg/dL (7-18) 12/28/18 05:30 Creatinine 0.8 mg/dL (0.55-1.3) 12/28/18 05:30 Creat Clearance w eGFR > 60 (>60) 12/28/18 05:30 Random Glucose 82 mg/dL (74-106) 12/28/18 05:30 Calcium 8.9 mg/dL (8.5-10.1) 12/28/18 05:30 Total Bilirubin 0.3 mg/dL (0.2-1) 12/28/18 05:30 AST 12 U/L (15-37) L 12/28/18 05:30 ALT 15 U/L (13-61) 12/28/18 05:30 Alkaline Phosphatase 75 U/L (45-117) 12/28/18 05:30 Total Protein 7.8 g/dl (6.4-8.2) 12/28/18 05:30 Albumin 3.9 g/dl (3.4-5.0) 12/28/18 05:30 lab noted Assessment: 12/29/18 10:58 mild alcohol withdrawal sx Plan: continue detox
[2018-12-29] MEDS ORDERED: chlordiazePOXIDE HCL 10 MG CAPSULE PO PRN (13:00)
[2018-12-29] MEDS: chlordiazePOXIDE HCL 10 MG CAPSULE PO SCH ×2 (14:03→22:01)
[2018-12-29] MEDS: MELATONIN 5 MG TABLETS PO PRN (22:02)
[2018-12-29] MEDS: THIAMINE HCL 100 MG TABLET (FP) PO SCH (22:02)
[2018-12-29] MEDS: hydrOXYzine PAMOATE 25 MG CAPSULE (FP) PO PRN (22:02)
[2018-12-30] MEDS: chlordiazePOXIDE HCL 10 MG CAPSULE PO SCH (05:20)
[2018-12-30 06:32] VITALS: BP 102/69; PULSE 76; TEMP 97.6
--- NOTE | 2018-12-30 13:02 | DS ---
[facility] Detox Discharge Summary Admission Date: 12/27/18 Discharge Date: 12/30/18 - History Present History: Alcohol Dependence Additional Comments: 38 years old female admitted on 12/27/18 for alcohol withdrawal stabilization completed detox regimen [facility] - Physical Exam Results Vital Signs: Vital Signs Temperature 97.6 F 12/30/18 06:31 Pulse Rate 76 12/30/18 06:31 Respiratory Rate 18 12/30/18 06:31 Blood Pressure 102/69 12/30/18 06:31 O2 Sat by Pulse Oximetry (%) Pertinent Admission Physical Exam Findings: alcohol withdrawal sx Laboratory Last Values WBC 5.8 K/mm3 (4.0-10.0) 12/28/18 05:30 RBC 3.91 M/mm3 (3.60-5.2) 12/28/18 05:30 Hgb 13.6 GM/dL (10.7-15.3) 12/28/18 05:30 Hct 39.0 % (32.4-45.2) 12/28/18 05:30 MCV 99.8 fl (80-96) H 12/28/18 05:30 MCH 34.8 pg (25.7-33.7) H 12/28/18 05:30 MCHC 34.8 g/dl (32.0-36.0) 12/28/18 05:30 RDW 13.7 % (11.6-15.6) 12/28/18 05:30 Plt Count 272 K/MM3 (134-434) 12/28/18 05:30 MPV 8.7 fl (7.5-11.1) 12/28/18 05:30 Sodium 138 mmol/L (136-145) 12/28/18 05:30 Potassium 4.0 mmol/L (3.5-5.1) 12/28/18 05:30 Chloride 104 mmol/L (98-107) 12/28/18 05:30 Carbon Dioxide 29 mmol/L (21-32) 12/28/18 05:30 Anion Gap 5 MMOL/L (8-16) L 12/28/18 05:30 BUN 13 mg/dL (7-18) 12/28/18 05:30 Creatinine 0.8 mg/dL (0.55-1.3) 12/28/18 05:30 Creat Clearance w eGFR > 60 (>60) 12/28/18 05:30 Random Glucose 82 mg/dL (74-106) 12/28/18 05:30 Calcium 8.9 mg/dL (8.5-10.1) 12/28/18 05:30 Total Bilirubin 0.3 mg/dL (0.2-1) 12/28/18 05:30 AST 12 U/L (15-37) L 12/28/18 05:30 ALT 15 U/L (13-61) 12/28/18 05:30 Alkaline Phosphatase 75 U/L (45-117) 12/28/18 05:30 Total Protein 7.8 g/dl (6.4-8.2) 12/28/18 05:30 Albumin 3.9 g/dl (3.4-5.0) 12/28/18 05:30 Urine Color Yellow 12/29/18 08:20 Urine Appearance Slcloudy 12/29/18 08:20 Urine pH 6.0 (5.0-8.0) 12/29/18 08:20 Ur Specific [place] 1.020 (1.010-1.035) 12/29/18 08:20 Urine Protein Negative (NEGATIVE) 12/29/18 08:20 Urine Glucose (UA) Negative (NEGATIVE) 12/29/18 08:20 Urine Ketones Negative (NEGATIVE) 12/29/18 08:20 Urine Blood Negative (NEGATIVE) 12/29/18 08:20 Urine Nitrite Negative (NEGATIVE) 12/29/18 08:20 Urine Bilirubin Negative (<2.0 mg/dL) 12/29/18 08:20 Urine Urobilinogen Negative mg/dL (0.2-1.0) 12/29/18 08:20 Ur Leukocyte Esterase Negative (NEGATIVE) 12/29/18 08:20 RPR Titer Nonreactive (NONREACTIVE) 12/28/18 05:30 lab noted - Treatment Hospital Course: Detox Protocol Followed, Detoxed Safely, Responded well, Discharged Condition Good, Rehab Referral Accepted Patient has Accepted a Rehab Referral to: [facility] - Medication Discharge Medications: Ambulatory Orders Aripiprazole [Abilify] 5 mg PO DAILY 12/09/18 [place] Carbonate [Eskalith -] 300 mg PO BID 12/27/18 Albuterol Sulfate Inhaler - [Ventolin HFA Inhaler -] 2 inh PO Q4H PRN #1 inhaler 12/29/18 - Diagnosis (1) Alcohol dependence with withdrawal Status: Acute Qualifiers: Complication of substance-induced condition: uncomplicated Qualified Code(s ): F10.230 - Alcohol dependence with withdrawal, uncomplicated (2) Asthma Status: Chronic Qualifiers: Asthma severity: mild Asthma persistence: intermittent Asthma complication type: uncomplicated Qualified Code(s): J45.20 - Mild intermittent asthma, uncomplicated (3) Nicotine dependence Status: Acute Qualifiers: Nicotine product type: cigarettes Substance use status: in withdrawal Qualified Code(s): F17.213 - Nicotine dependence, cigarettes, with withdrawal (4) Substance induced mood disorder Status: Suspected - AMA Did Patient Leave Against Medical Advice: No
== END 2018-12-30 09:00 | disposition home or self-care (01) | DRG 774 ==
LOC: YASAS 09:41 → Y3N 11:46
PROVIDERS: ADMIT Surgery; ATTEND Surgery
PROC: HZ2ZZZZ Detoxification Services for Substance Abuse Treatment (ICD-10-PCS; principal; 2018-12-27)
DX: F10.230 Alcohol dependence with withdrawal, uncomplicated (principal); F14.20 Cocaine dependence, uncomplicated; F12.20 Cannabis dependence, uncomplicated; F17.213 Nicotine dependence, cigarettes, with withdrawal; F19.24 Other psychoactive substance dependence with psychoactive substance-induced mood disorder; F43.10 Post-traumatic stress disorder, unspecified; J45.20 Mild intermittent asthma, uncomplicated; G47.00 Insomnia, unspecified; Z91.14 Patient's other noncompliance with medication regimen; Z91.018 Allergy to other foods; Z91.013 Allergy to seafood; Z91.5 Personal history of self-harm
CPT/HCPCS: 36415; 80053; 81003; 85027; 86593

== ENCOUNTER 2020-11-26 18:27 | Inpatient (IN) | payer OTHER ==
[2020-11-26 18:51] VITALS: BMI 29.6
[2020-11-27] MEDS ORDERED: ACETAMINOPHEN 325 MG TABLET (FP) PO PRN ×2 (00:24)
[2020-11-27] MEDS ORDERED: MENTHOL/PHENOL 1 EACH UD MM PRN (00:24)
[2020-11-27] MEDS ORDERED: ONDANSETRON *ODT* 4 MG TABLET SL PRN (00:24)
[2020-11-27] MEDS ORDERED: MAGNESIUM HYDROX 2400MG/30ML ORAL SUSPENSION 30 ML CUP PO PRN (00:24)
[2020-11-27] MEDS ORDERED: MAG HYDROX/AL HYDROX/SIMETH 30 ML UNIT-DOSE CUP PO PRN (00:24)
[2020-11-27] MEDS ORDERED: BISMUTH SUBSALICYLATE 524 MG/30 ML UD PO PRN (00:24)
[2020-11-27] MEDS ORDERED: METHOCARBAMOL 500 MG TABLET PO PRN (00:24)
[2020-11-27] MEDS ORDERED: IBUPROFEN 400 MG TABLET (FP) PO PRN (00:24)
[2020-11-27] MEDS ORDERED: MAGNESIUM CITRATE 300 ML BOTTLE PO PRN (00:24)
[2020-11-27] MEDS ORDERED: NICOTINE POLACRILEX 2 MG GUM BUC PRN (00:24)
[2020-11-27] MEDS ORDERED: ALBUTEROL SO4 HFA INHALER IH PRN (00:27)
[2020-11-27] MEDS: chlordiazePOXIDE HCL 25 MG CAPSULE PO PRN (01:16)
[2020-11-27] MEDS: chlordiazePOXIDE HCL 25 MG CAPSULE PO SCH ×4 (06:36→22:11)
[2020-11-27] MEDS: PRENATAL VITAMINS W/ FOLIC ACID TABLET (FP) PO SCH (10:32)
[2020-11-27] MEDS: NICOTINE 14 MG/24 HOURS TOPICAL PATCH TD SCH (10:34)
[2020-11-27] MEDS: THIAMINE HCL 100 MG TABLET (FP) PO SCH (22:11)
[2020-11-27] MEDS: MELATONIN 5 MG TABLETS PO SCH (22:11)
[2020-11-27] MEDS: OLANZapine 10 MG TABLET PO SCH (22:11)
[2020-11-28] MEDS: chlordiazePOXIDE HCL 25 MG CAPSULE PO SCH ×4 (06:22→22:20)
[2020-11-28] MEDS: PRENATAL VITAMINS W/ FOLIC ACID TABLET (FP) PO SCH (10:20)
[2020-11-28] MEDS: NICOTINE 14 MG/24 HOURS TOPICAL PATCH TD SCH (10:21)
[2020-11-28] MEDS ORDERED: PNEUMOCOCCAL 23 VACCINE 0.5 ML VIAL IM ONE (12:00)
[2020-11-28] MEDS ORDERED: PNEUMOC 13-VAL CONJ-DIP CRM/PF 0.5 ML DISP.SYRIN IM ONE (12:00)
[2020-11-28 12:08] LABS: POTASSIUM 3.7 mmol/L (3.5-5.1)
[2020-11-28 12:12] LABS: HEMATOCRIT 34.3 % (32.4-45.2); HEMOGLOBIN 11.4 GM/dL (10.7-15.3); MCH 28.9 pg (25.7-33.7); MCHC 33.2 g/dl (32.0-36.0); MEAN CELL VOLUME 86.9 fl (80-96); MEAN PLT VOLUME 8.5 fl (7.5-11.1); PLATELET COUNT 377 K/MM3 (134-434); RBC 3.94 M/mm3 (3.60-5.2); RDW 15.8 % (11.6-15.6); WHITE BLOOD COUNT 5.8 K/mm3 (4.0-10.0)
[2020-11-28 12:14] LABS: ALBUMIN 3.5 g/dl (3.4-5.0); BLOOD UREA NITROGEN 11.7 mg/dL (7-18)
[2020-11-28 12:18] LABS: CREATININE 0.8 mg/dL (0.55-1.3)
[2020-11-28 12:19] LABS: BILIRUBIN,TOTAL 0.8 mg/dL (0.2-1); TOT PROT 7.2 g/dl (6.4-8.2)
[2020-11-28] MEDS: chlordiazePOXIDE HCL 25 MG CAPSULE PO PRN (22:18)
[2020-11-28] MEDS: THIAMINE HCL 100 MG TABLET (FP) PO SCH (22:18)
[2020-11-28] MEDS: OLANZapine 10 MG TABLET PO SCH (22:18)
[2020-11-28] MEDS: MELATONIN 5 MG TABLETS PO SCH (22:18)
[2020-11-29] MEDS ORDERED: chlordiazePOXIDE HCL 10 MG CAPSULE PO PRN
[2020-11-29] MEDS: chlordiazePOXIDE HCL 10 MG CAPSULE PO SCH ×4 (06:24→22:34)
[2020-11-29] MEDS: PRENATAL VITAMINS W/ FOLIC ACID TABLET (FP) PO SCH (10:11)
[2020-11-29] MEDS: NICOTINE 14 MG/24 HOURS TOPICAL PATCH TD SCH (10:14)
[2020-11-29] MEDS: OLANZapine 10 MG TABLET PO SCH (22:34)
[2020-11-29] MEDS: MELATONIN 5 MG TABLETS PO SCH (22:34)
[2020-11-29] MEDS: THIAMINE HCL 100 MG TABLET (FP) PO SCH (22:34)
[2020-11-30] MEDS: chlordiazePOXIDE HCL 10 MG CAPSULE PO SCH ×2 (06:38→17:42)
[2020-11-30] MEDS: PRENATAL VITAMINS W/ FOLIC ACID TABLET (FP) PO SCH (10:13)
[2020-11-30] MEDS: NICOTINE 14 MG/24 HOURS TOPICAL PATCH TD SCH (10:13)
[2020-11-30] MEDS: OLANZapine 10 MG TABLET PO SCH (22:13)
[2020-11-30] MEDS: MELATONIN 5 MG TABLETS PO SCH (22:13)
[2020-11-30] MEDS: THIAMINE HCL 100 MG TABLET (FP) PO SCH (22:13)
[2020-12-01] MEDS ORDERED: chlordiazePOXIDE HCL 10 MG CAPSULE PO ONE (05:00)
[2020-12-01 09:22] VITALS: BP 113/65; PULSE 94; TEMP 97.1
[2020-12-01] MEDS: PRENATAL VITAMINS W/ FOLIC ACID TABLET (FP) PO SCH (10:05)
[2020-12-01] MEDS: NICOTINE 14 MG/24 HOURS TOPICAL PATCH TD SCH (10:05)
== END 2020-12-01 10:32 | disposition home or self-care (01) | DRG 897 ==
LOC: YASAS 18:27 → Y6N 22:29
PROVIDERS: ADMIT Allergy & Immunology; ATTEND Allergy & Immunology
PROC: HZ2ZZZZ Detoxification Services for Substance Abuse Treatment (ICD-10-PCS; principal; 2020-11-26)
DX: F10.230 Alcohol dependence with withdrawal, uncomplicated (principal); F14.20 Cocaine dependence, uncomplicated; F12.20 Cannabis dependence, uncomplicated; F17.210 Nicotine dependence, cigarettes, uncomplicated; F19.24 Other psychoactive substance dependence with psychoactive substance-induced mood disorder; F31.9 Bipolar disorder, unspecified; G47.00 Insomnia, unspecified; J45.20 Mild intermittent asthma, uncomplicated; Z62.810 Personal history of physical and sexual abuse in childhood; Z87.442 Personal history of urinary calculi; Z91.013 Allergy to seafood; Z91.018 Allergy to other foods; Z91.19 Patient's noncompliance with other medical treatment and regimen
CPT/HCPCS: 36415; 80053; 81025; 85027; 86780; 90732; 93005; 93010; C9803; G0009; U0003

== ENCOUNTER 2022-11-11 08:49 | Inpatient (IN) | payer OTHER ==
[2022-11-11 11:20] VITALS: BMI 22.8
[2022-11-11] MEDS ORDERED: ONDANSETRON *ODT* 4 MG TABLET SL PRN (11:44)
[2022-11-11] MEDS ORDERED: BENZOCAINE/MENTHOL (CHLORASEPTIC ) LOZENGE MM PRN (11:44)
[2022-11-11] MEDS ORDERED: hydrOXYzine PAMOATE 25 MG CAPSULE (FP) PO PRN (11:44)
[2022-11-11] MEDS ORDERED: MAGNESIUM HYDROX 2400MG/30ML ORAL SUSPENSION 30 ML CUP PO PRN (11:44)
[2022-11-11] MEDS ORDERED: LOPERAMIDE HCL 2 MG CAPSULE PO PRN (11:44)
[2022-11-11] MEDS ORDERED: NALOXONE HCL (KLOXXADO) 8 MG SPRAY NS PRN (11:44)
[2022-11-11] MEDS ORDERED: IBUPROFEN 400 MG TABLET (FP) PO PRN (11:44)
[2022-11-11] MEDS ORDERED: DICYCLOMINE HCL 10 MG CAPSULE PO PRN (11:44)
[2022-11-11] MEDS ORDERED: NICOTINE 10 MG CARTRIDGE (INHALER) IH PRN (11:44)
[2022-11-11] MEDS ORDERED: ACETAMINOPHEN 325 MG TABLET (FP) PO PRN (11:44)
[2022-11-11] MEDS ORDERED: NICOTINE POLACRILEX 2 MG GUM BUC PRN (11:44)
[2022-11-11] MEDS ORDERED: BISMUTH SUBSALICYLATE 524 MG/30 ML PO PRN (11:44)
[2022-11-11] MEDS ORDERED: METHOCARBAMOL 500 MG TABLET PO PRN (11:44)
[2022-11-11] MEDS ORDERED: POLYETHYLENE GLYCOL (HEALTHYLAX) 3350 17 GM PACKET PO PRN (11:44)
[2022-11-11] MEDS: THIAMINE HCL 100 MG TABLET (FP) PO SCH (22:25)
[2022-11-11] MEDS: MELATONIN 5 MG TABLETS PO SCH (22:25)
[2022-11-12] MEDS ORDERED: chlordiazePOXIDE HCL 10 MG CAPSULE PO PRN
[2022-11-12] MEDS: chlordiazePOXIDE HCL 25 MG CAPSULE PO SCH ×3 (10:25→22:34)
[2022-11-12] MEDS: PRENATAL VITAMINS W/ FOLIC ACID TABLET (FP) PO SCH (10:25)
[2022-11-12] MEDS: FLUoxetine HCL 10 MG CAPSULE PO SCH (11:39)
[2022-11-12 12:02] LABS: HEMATOCRIT 38.4 % (32.4-45.2); MCHC 33.9 g/dl (32.0-36.0); MEAN CELL VOLUME 94.5 fl (80-96); MEAN PLT VOLUME 7.9 fl (7.5-11.1); PLATELET COUNT 321 10^3/uL (134-434); RBC 4.07 M/mm3 (3.60-5.2); RDW 13.4 % (11.6-15.6); WHITE BLOOD COUNT 4.8 K/mm3 (4.0-10.0)
[2022-11-12 12:12] LABS: ALBUMIN 3.3 g/dl (3.4-5.0); BLOOD UREA NITROGEN 11.4 mg/dL (7-18); CALCIUM 9.1 mg/dL (8.5-10.1)
[2022-11-12 12:16] LABS: CREATININE 0.7 mg/dL (0.55-1.3)
[2022-11-12 12:17] LABS: BILIRUBIN,TOTAL 0.6 mg/dL (0.2-1); TOT PROT 6.6 g/dl (6.4-8.2)
[2022-11-12] MEDS: OLANZapine 10 MG TABLET PO SCH (22:34)
[2022-11-12] MEDS: MELATONIN 5 MG TABLETS PO SCH (22:34)
[2022-11-12] MEDS: THIAMINE HCL 100 MG TABLET (FP) PO SCH (22:34)
[2022-11-13] MEDS: chlordiazePOXIDE HCL 10 MG CAPSULE PO SCH ×4 (06:10→23:02)
[2022-11-13] MEDS: PRENATAL VITAMINS W/ FOLIC ACID TABLET (FP) PO SCH (10:04)
[2022-11-13] MEDS: FLUoxetine HCL 10 MG CAPSULE PO SCH (10:04)
[2022-11-13] MEDS ORDERED: ALBUTEROL SO4 HFA INHALER IH PRN (11:49)
[2022-11-13] MEDS: MELATONIN 5 MG TABLETS PO SCH (22:49)
[2022-11-13] MEDS: THIAMINE HCL 100 MG TABLET (FP) PO SCH (22:49)
[2022-11-13] MEDS: OLANZapine 10 MG TABLET PO SCH (22:49)
[2022-11-14] MEDS: chlordiazePOXIDE HCL 10 MG CAPSULE PO SCH ×2 (06:26→17:11)
[2022-11-14] MEDS: FLUoxetine HCL 10 MG CAPSULE PO SCH (10:14)
[2022-11-14] MEDS: PRENATAL VITAMINS W/ FOLIC ACID TABLET (FP) PO SCH (10:14)
[2022-11-14] MEDS: THIAMINE HCL 100 MG TABLET (FP) PO SCH (22:23)
[2022-11-14] MEDS: OLANZapine 10 MG TABLET PO SCH (22:23)
[2022-11-14] MEDS: MELATONIN 5 MG TABLETS PO SCH (22:23)
[2022-11-15] MEDS ORDERED: chlordiazePOXIDE HCL 10 MG CAPSULE PO ONE (05:00)
[2022-11-15] MEDS: FLUoxetine HCL 10 MG CAPSULE PO SCH (09:20)
[2022-11-15] MEDS: PRENATAL VITAMINS W/ FOLIC ACID TABLET (FP) PO SCH (09:20)
[2022-11-15] MEDS: THIAMINE HCL 100 MG TABLET (FP) PO SCH (21:40)
[2022-11-15] MEDS: MELATONIN 5 MG TABLETS PO SCH (21:40)
[2022-11-15] MEDS: OLANZapine 10 MG TABLET PO SCH (21:40)
[2022-11-15] MEDS: MAG HYDROX/AL HYDROX/SIMETH 30 ML UNIT-DOSE CUP PO PRN (22:30)
[2022-11-16] MEDS: PRENATAL VITAMINS W/ FOLIC ACID TABLET (FP) PO SCH (10:59)
[2022-11-16] MEDS: FLUoxetine HCL 10 MG CAPSULE PO SCH (10:59)
[2022-11-16] MEDS ORDERED: FLU VACC QS2022-23(6MOS UP)/PF 60 MCG/0.5 ML SYRINGE IM ONE (12:00)
[2022-11-16] MEDS ORDERED: PNEUMOC 20-VAL CONJ-DIP CRM/PF 0.5 ML SYRINGE IM ONE (12:00)
[2022-11-16 12:37] LABS: HIV INTERPRETATION NEGATIVE (NEGATIVE)
[2022-11-16] MEDS: ACETAMINOPHEN 325 MG TABLET (FP) PO PRN (13:08)
[2022-11-16] MEDS: MAG HYDROX/AL HYDROX/SIMETH 30 ML UNIT-DOSE CUP PO PRN (13:10)
[2022-11-16] MEDS: IBUPROFEN 600 MG TABLET (FP) PO PRN ×2 (18:08→18:10)
[2022-11-16] MEDS: OLANZapine 10 MG TABLET PO SCH (21:47)
[2022-11-16] MEDS: THIAMINE HCL 100 MG TABLET (FP) PO SCH (21:47)
[2022-11-16] MEDS: MELATONIN 5 MG TABLETS PO SCH (21:47)
[2022-11-17] MEDS: PRENATAL VITAMINS W/ FOLIC ACID TABLET (FP) PO SCH (10:00)
[2022-11-17] MEDS: FLUoxetine HCL 10 MG CAPSULE PO SCH (10:00)
[2022-11-17] MEDS: ACETAMINOPHEN 325 MG TABLET (FP) PO PRN ×2 (10:00→17:34)
[2022-11-17] MEDS: IBUPROFEN 600 MG TABLET (FP) PO PRN ×2 (12:48→21:13)
[2022-11-17] MEDS ORDERED: BENZOCAINE 20 % GEL TUBE MM PRN (12:50)
[2022-11-17] MEDS: THIAMINE HCL 100 MG TABLET (FP) PO SCH (21:13)
[2022-11-17] MEDS: MELATONIN 5 MG TABLETS PO SCH (21:13)
[2022-11-17] MEDS: OLANZapine 10 MG TABLET PO SCH (21:14)
[2022-11-18] MEDS: IBUPROFEN 600 MG TABLET (FP) PO PRN ×3 (06:32→21:50)
[2022-11-18] MEDS: ACETAMINOPHEN 325 MG TABLET (FP) PO PRN (10:28)
[2022-11-18] MEDS: PRENATAL VITAMINS W/ FOLIC ACID TABLET (FP) PO SCH (10:28)
[2022-11-18] MEDS: FLUoxetine HCL 10 MG CAPSULE PO SCH (10:29)
[2022-11-18] MEDS: MELATONIN 5 MG TABLETS PO SCH (21:48)
[2022-11-18] MEDS: OLANZapine 10 MG TABLET PO SCH (21:48)
[2022-11-18] MEDS: THIAMINE HCL 100 MG TABLET (FP) PO SCH (21:48)
[2022-11-19] MEDS: FLUoxetine HCL 10 MG CAPSULE PO SCH (10:13)
[2022-11-19] MEDS: PRENATAL VITAMINS W/ FOLIC ACID TABLET (FP) PO SCH (10:13)
[2022-11-19] MEDS: THIAMINE HCL 100 MG TABLET (FP) PO SCH (21:31)
[2022-11-19] MEDS: OLANZapine 10 MG TABLET PO SCH (21:31)
[2022-11-19] MEDS: MELATONIN 5 MG TABLETS PO SCH (21:31)
[2022-11-20] MEDS: PRENATAL VITAMINS W/ FOLIC ACID TABLET (FP) PO SCH (10:20)
[2022-11-20] MEDS: IBUPROFEN 600 MG TABLET (FP) PO PRN ×2 (10:21→21:45)
[2022-11-20] MEDS: FLUoxetine HCL 10 MG CAPSULE PO SCH (10:21)
[2022-11-20] MEDS: MELATONIN 5 MG TABLETS PO SCH (21:44)
[2022-11-20] MEDS: OLANZapine 10 MG TABLET PO SCH (21:45)
[2022-11-20] MEDS: THIAMINE HCL 100 MG TABLET (FP) PO SCH (21:45)
[2022-11-21] MEDS: FLUoxetine HCL 10 MG CAPSULE PO SCH (10:09)
[2022-11-21] MEDS: PRENATAL VITAMINS W/ FOLIC ACID TABLET (FP) PO SCH (10:09)
[2022-11-21] MEDS: THIAMINE HCL 100 MG TABLET (FP) PO SCH (21:30)
[2022-11-21] MEDS: OLANZapine 10 MG TABLET PO SCH (21:30)
[2022-11-21] MEDS: MELATONIN 5 MG TABLETS PO SCH (21:30)
[2022-11-22 07:20] VITALS: BP 113/61; PULSE 90; RESP 18; TEMP 98
[2022-11-22] MEDS: FLUoxetine HCL 10 MG CAPSULE PO SCH (09:59)
[2022-11-22] MEDS: PRENATAL VITAMINS W/ FOLIC ACID TABLET (FP) PO SCH (09:59)
== END 2022-11-22 11:25 | disposition home or self-care (01) | DRG 895 ==
LOC: YASAS 08:49 → Y3N 11:37 → UNDODISIN 11-15 12:57 → Y5N 11-15 13:47
PROVIDERS: ADMIT Allergy & Immunology; ATTEND Psychiatry & Neurology Pain Medicine
PROC: HZ42ZZZ Group Counseling for Substance Abuse Treatment, Cognitive-Behavioral (ICD-10-PCS; principal; 2022-11-11)
DX: F10.20 Alcohol dependence, uncomplicated (principal); F14.20 Cocaine dependence, uncomplicated; F19.282 Other psychoactive substance dependence with psychoactive substance-induced sleep disorder; F12.20 Cannabis dependence, uncomplicated; F17.210 Nicotine dependence, cigarettes, uncomplicated; F19.24 Other psychoactive substance dependence with psychoactive substance-induced mood disorder; F31.9 Bipolar disorder, unspecified; F43.10 Post-traumatic stress disorder, unspecified; G47.00 Insomnia, unspecified; J45.909 Unspecified asthma, uncomplicated; Z28.311 Partially vaccinated for COVID-19; Z91.018 Allergy to other foods
CPT/HCPCS: 36415; 80053; 81025; 85027; 86780; 87389; 87811; 90677; C9803-CS; G0008; Q2036; U0003; U0005

== ENCOUNTER 2023-01-01 10:59 | Inpatient (IN) | payer OTHER ==
[2023-01-01 11:32] VITALS: BMI 22.6
[2023-01-01] MEDS ORDERED: NICOTINE 7 MG/24 HOURS TOPICAL PATCH TD PRN (11:53)
[2023-01-01] MEDS ORDERED: NICOTINE POLACRILEX 2 MG GUM BUC PRN (11:53)
[2023-01-01] MEDS ORDERED: IBUPROFEN 400 MG TABLET (FP) PO PRN (11:53)
[2023-01-01] MEDS ORDERED: BENZONATATE 200 MG CAPSULE PO PRN (11:53)
[2023-01-01] MEDS ORDERED: ONDANSETRON *ODT* 4 MG TABLET SL PRN (11:53)
[2023-01-01] MEDS ORDERED: BENZOCAINE/MENTHOL (CHLORASEPTIC ) LOZENGE MM PRN (11:53)
[2023-01-01] MEDS ORDERED: NICOTINE 10 MG CARTRIDGE (INHALER) IH PRN (11:53)
[2023-01-01] MEDS ORDERED: DICYCLOMINE HCL 10 MG CAPSULE PO PRN (11:53)
[2023-01-01] MEDS ORDERED: ACETAMINOPHEN 325 MG TABLET (FP) PO PRN (11:53)
[2023-01-01] MEDS ORDERED: MAGNESIUM HYDROX 2400MG/30ML ORAL SUSPENSION 30 ML CUP PO PRN (11:53)
[2023-01-01] MEDS ORDERED: MAG HYDROX/AL HYDROX/SIMETH 30 ML UNIT-DOSE CUP PO PRN (11:53)
[2023-01-01] MEDS ORDERED: guaiFENesin 600 MG TABLET.ER (FP) PO PRN (11:53)
[2023-01-01] MEDS ORDERED: METHOCARBAMOL 500 MG TABLET PO PRN (11:53)
[2023-01-01] MEDS ORDERED: LORazepam 1 MG TABLET PO PRN (11:53)
[2023-01-01] MEDS ORDERED: BISMUTH SUBSALICYLATE 262 MG/15 ML BTL PO PRN (11:53)
[2023-01-01] MEDS ORDERED: LOPERAMIDE HCL 2 MG CAPSULE PO PRN (11:53)
[2023-01-01] MEDS ORDERED: POLYETHYLENE GLYCOL (HEALTHYLAX) 3350 17 GM PACKET PO PRN (11:53)
[2023-01-01] MEDS ORDERED: IBUPROFEN 600 MG TABLET (FP) PO PRN (11:53)
[2023-01-01] MEDS ORDERED: hydrOXYzine PAMOATE 25 MG CAPSULE (FP) PO PRN (11:53)
[2023-01-01] MEDS ORDERED: LORazepam 1 MG TABLET ONE (12:45)
[2023-01-01] MEDS: FLUoxetine HCL 10 MG CAPSULE PO SCH (14:06)
[2023-01-01] MEDS: LORazepam 2 MG TABLET PO SCH ×2 (18:00→22:20)
[2023-01-01 19:22] LABS: CALCIUM 8.8 mg/dL (8.5-10.1)
[2023-01-01 19:23] LABS: ALBUMIN 3.8 g/dl (3.4-5.0); BLOOD UREA NITROGEN 8.4 mg/dL (7-18); HEMATOCRIT 36.4 % (32.4-45.2); HEMOGLOBIN 12.4 GM/dL (10.7-15.3); MCH 31.8 pg (25.7-33.7); MEAN CELL VOLUME 93.7 fl (80-96); MEAN PLT VOLUME 8.2 fl (7.5-11.1); PLATELET COUNT 342 10^3/uL (134-434); RBC 3.88 M/mm3 (3.60-5.2); RDW 13.5 % (11.6-15.6); WHITE BLOOD COUNT 6.2 K/mm3 (4.0-10.0)
[2023-01-01 19:25] LABS: CREATININE 0.7 mg/dL (0.55-1.3)
[2023-01-01 19:27] LABS: BILIRUBIN,TOTAL 0.4 mg/dL (0.2-1); TOT PROT 7.6 g/dl (6.4-8.2)
[2023-01-01 20:18] LABS: HIV INTERPRETATION NEGATIVE (NEGATIVE)
[2023-01-01] MEDS: OLANZapine 10 MG TABLET PO SCH (22:19)
[2023-01-01] MEDS: FAMOTIDINE 20 MG TABLET PO SCH (22:19)
[2023-01-01] MEDS: MELATONIN 5 MG TABLETS PO SCH (22:20)
[2023-01-01] MEDS: THIAMINE HCL 100 MG TABLET (FP) PO SCH (22:20)
[2023-01-02] MEDS: LORazepam 2 MG TABLET PO SCH ×4 (05:50→22:56)
[2023-01-02] MEDS: FLUoxetine HCL 10 MG CAPSULE PO SCH (10:17)
[2023-01-02] MEDS: FAMOTIDINE 20 MG TABLET PO SCH ×2 (10:17→22:17)
[2023-01-02] MEDS: PRENATAL VITAMINS W/ FOLIC ACID TABLET (FP) PO SCH (10:17)
[2023-01-02] MEDS: MELATONIN 5 MG TABLETS PO SCH (22:17)
[2023-01-02] MEDS: THIAMINE HCL 100 MG TABLET (FP) PO SCH (22:18)
[2023-01-02] MEDS: OLANZapine 10 MG TABLET PO SCH (22:18)
[2023-01-03] MEDS: LORazepam 1 MG TABLET PO SCH ×4 (05:52→22:15)
[2023-01-03] MEDS: PRENATAL VITAMINS W/ FOLIC ACID TABLET (FP) PO SCH (10:56)
[2023-01-03] MEDS: FLUoxetine HCL 10 MG CAPSULE PO SCH (10:56)
[2023-01-03] MEDS: FAMOTIDINE 20 MG TABLET PO SCH ×2 (10:56→22:14)
[2023-01-03] MEDS: MELATONIN 5 MG TABLETS PO SCH (22:14)
[2023-01-03] MEDS: THIAMINE HCL 100 MG TABLET (FP) PO SCH (22:14)
[2023-01-03] MEDS: OLANZapine 10 MG TABLET PO SCH (22:14)
[2023-01-04] MEDS ORDERED: LORazepam 0.5 MG TABLET PO PRN
[2023-01-04] MEDS: LORazepam 0.5 MG TABLET PO SCH ×4 (05:49→22:36)
[2023-01-04] MEDS: FAMOTIDINE 20 MG TABLET PO SCH ×2 (09:59→22:37)
[2023-01-04] MEDS: PRENATAL VITAMINS W/ FOLIC ACID TABLET (FP) PO SCH (09:59)
[2023-01-04] MEDS: FLUoxetine HCL 10 MG CAPSULE PO SCH (09:59)
[2023-01-04] MEDS: MELATONIN 5 MG TABLETS PO SCH (22:37)
[2023-01-04] MEDS: THIAMINE HCL 100 MG TABLET (FP) PO SCH (22:37)
[2023-01-04] MEDS: OLANZapine 10 MG TABLET PO SCH (22:37)
[2023-01-05] MEDS ORDERED: LORazepam 0.5 MG TABLET PO ONE (05:00)
[2023-01-05 09:12] VITALS: BP 98/62; PULSE 80; RESP 17; TEMP 98.4
[2023-01-05] MEDS: PRENATAL VITAMINS W/ FOLIC ACID TABLET (FP) PO SCH (10:10)
[2023-01-05] MEDS: FLUoxetine HCL 10 MG CAPSULE PO SCH (10:11)
[2023-01-05] MEDS: FAMOTIDINE 20 MG TABLET PO SCH (10:11)
== END 2023-01-05 10:20 | disposition home or self-care (01) | DRG 897 ==
LOC: YASAS 10:59 → Y6N 11:51
PROVIDERS: ADMIT Allergy & Immunology; ATTEND Surgery
PROC: HZ2ZZZZ Detoxification Services for Substance Abuse Treatment (ICD-10-PCS; principal; 2023-01-01)
DX: F10.230 Alcohol dependence with withdrawal, uncomplicated (principal); F14.20 Cocaine dependence, uncomplicated; F19.282 Other psychoactive substance dependence with psychoactive substance-induced sleep disorder; F17.210 Nicotine dependence, cigarettes, uncomplicated; F19.24 Other psychoactive substance dependence with psychoactive substance-induced mood disorder; F25.1 Schizoaffective disorder, depressive type; F31.9 Bipolar disorder, unspecified; F43.10 Post-traumatic stress disorder, unspecified; J45.909 Unspecified asthma, uncomplicated; K21.9 Gastro-esophageal reflux disease without esophagitis
CPT/HCPCS: 36415; 80053; 85027; 86780; 87389; C9803-CS; U0003; U0005

== ENCOUNTER 2024-05-21 18:16 | Inpatient (IN) | payer OTHER ==
[2024-05-21 18:51] VITALS: BMI 21.0
[2024-05-21] MEDS ORDERED: LOPERAMIDE HCL 2 MG CAPSULE PO PRN (20:22)
[2024-05-21] MEDS ORDERED: NICOTINE POLACRILEX 2 MG GUM BUC PRN (20:22)
[2024-05-21] MEDS ORDERED: ONDANSETRON *ODT* 4 MG TABLET SL PRN (20:22)
[2024-05-21] MEDS ORDERED: IBUPROFEN 400 MG TABLET (FP) PO PRN (20:22)
[2024-05-21] MEDS ORDERED: ACETAMINOPHEN 325 MG TABLET (FP) PO PRN (20:22)
[2024-05-21] MEDS ORDERED: NALOXONE HCL 0.4 MG/ML VIAL IM PRN (20:22)
[2024-05-21] MEDS ORDERED: BENZOCAINE/MENTHOL (CHLORASEPTIC ) LOZENGE MM PRN (20:22)
[2024-05-21] MEDS ORDERED: IBUPROFEN 600 MG TABLET (FP) PO PRN (20:22)
[2024-05-21] MEDS ORDERED: MAGNESIUM HYDROX 2400MG/30ML ORAL SUSPENSION 30 ML CUP PO PRN (20:22)
[2024-05-21] MEDS ORDERED: DICYCLOMINE HCL 10 MG CAPSULE PO PRN (20:22)
[2024-05-21] MEDS ORDERED: POLYETHYLENE GLYCOL (HEALTHYLAX) 3350 17 GM PACKET PO PRN (20:22)
[2024-05-21] MEDS ORDERED: hydrOXYzine PAMOATE 25 MG CAPSULE (FP) PO PRN (20:22)
[2024-05-21] MEDS ORDERED: NALOXONE (NARCAN) HCL 4 MG/0.1 ML SPRAY NS PRN (20:22)
[2024-05-21] MEDS ORDERED: BENZONATATE 200 MG CAPSULE PO PRN (20:22)
[2024-05-21] MEDS ORDERED: guaiFENesin 600 MG TABLET.ER (FP) PO PRN (20:22)
[2024-05-21] MEDS ORDERED: MAG HYDROX/AL HYDROX/SIMETH 30 ML UNIT-DOSE CUP PO PRN (20:22)
[2024-05-21] MEDS ORDERED: BISMUTH SUBSALICYLATE 524 MG/30 ML PO PRN (20:22)
[2024-05-21] MEDS: MELATONIN 5 MG TABLETS PO SCH (22:30)
[2024-05-21] MEDS: THIAMINE 100 MG TABLET PO SCH (22:30)
[2024-05-21] MEDS: METHOCARBAMOL 500 MG TABLET PO PRN (22:30)
[2024-05-22] MEDS ORDERED: chlordiazePOXIDE HCL 25 MG CAPSULE PO PRN (10:18)
[2024-05-22] MEDS: NICOTINE 14 MG/24 HOURS TOPICAL PATCH TD SCH (10:39)
[2024-05-22] MEDS: PRENATAL VITAMINS W/ FOLIC ACID TABLET (FP) PO SCH (10:39)
[2024-05-22] MEDS: chlordiazePOXIDE HCL 25 MG CAPSULE PO SCH (10:40)
[2024-05-22 11:51] LABS: HEMATOCRIT 37.4 % (32.4-45.2); HEMOGLOBIN 12.6 GM/dL (10.7-15.3); MCH 32.5 pg (25.7-33.7); MCHC 33.8 g/dl (32.0-36.0); MEAN CELL VOLUME 96.1 fl (80-96); MEAN PLT VOLUME 9.3 fl (7.5-11.1); PLATELET COUNT 308 10^3/uL (134-434); RBC 3.89 M/mm3 (3.60-5.2); RDW 13.3 % (11.6-15.6); WHITE BLOOD COUNT 4.6 K/mm3 (4.0-10.0)
[2024-05-22 12:00] LABS: POTASSIUM 4.5 mmol/L (3.5-5.1)
[2024-05-22 12:04] LABS: CALCIUM 8.9 mg/dL (8.5-10.1)
[2024-05-22 12:05] LABS: ALBUMIN 3.4 g/dl (3.4-5.0); BLOOD UREA NITROGEN 16.6 mg/dL (7-18)
[2024-05-22 12:08] LABS: CREATININE 0.5 mg/dL (0.55-1.3)
[2024-05-22 12:09] LABS: BILIRUBIN,TOTAL 0.4 mg/dL (0.2-1)
[2024-05-22 12:32] LABS: TOT PROT 6.8 g/dl (6.4-8.2)
[2024-05-22 21:21] LABS: HIV INTERPRETATION NEGATIVE (NEGATIVE)
[2024-05-23 10:22] VITALS: RESP 18
[2024-05-23 13:32] VITALS: BP 100/63; PULSE 81; TEMP 98.2
[2024-05-24] MEDS ORDERED: chlordiazePOXIDE HCL 25 MG CAPSULE PO SCH (05:00)
[2024-05-25] MEDS ORDERED: chlordiazePOXIDE HCL 10 MG CAPSULE PO PRN
[2024-05-25] MEDS ORDERED: chlordiazePOXIDE HCL 10 MG CAPSULE PO SCH (05:00)
[2024-05-26] MEDS ORDERED: chlordiazePOXIDE HCL 10 MG CAPSULE PO SCH (05:00)
[2024-05-27] MEDS ORDERED: chlordiazePOXIDE HCL 10 MG CAPSULE PO ONE (05:00)
== END 2024-05-23 16:30 | disposition left against medical advice (07) | DRG 894 ==
LOC: YASAS 18:16 → Y6N 20:15
PROVIDERS: ADMIT Allergy & Immunology; ATTEND Surgery
PROC: HZ2ZZZZ Detoxification Services for Substance Abuse Treatment (ICD-10-PCS; principal; 2024-05-21)
DX: F10.230 Alcohol dependence with withdrawal, uncomplicated (principal); F14.20 Cocaine dependence, uncomplicated; F31.12 Bipolar disorder, current episode manic without psychotic features, moderate; F17.210 Nicotine dependence, cigarettes, uncomplicated; F43.10 Post-traumatic stress disorder, unspecified; F19.94 Other psychoactive substance use, unspecified with psychoactive substance-induced mood disorder; I10 Essential (primary) hypertension; K21.9 Gastro-esophageal reflux disease without esophagitis; D50.9 Iron deficiency anemia, unspecified; J45.909 Unspecified asthma, uncomplicated; Z91.199 Patient's noncompliance with other medical treatment and regimen due to unspecified reason; Z56.0 Unemployment, unspecified
CPT/HCPCS: 36415; 80053; 80305; 80307; 81025; 85027; 86780; 87389; 87522; 93005; 93010